=== PATIENT | male | born 1985 | race Caucasian/White ===

== ENCOUNTER → 2016-10-27 | Outpatient (CLI) | payer BC, OTHER ==
--- NOTE | 2016-10-27 19:44 | REP ---
RIGHT ANKLE SERIES, COMPLETE: 10/27/2016. Clinical history: Ankle injury. Pain. Findings. There are no prior studies. Four views show the mortise joints symmetric and preserved with no talar dome osteochondral defect or widening of the mortise distal tibia and fibula without fracture or focal lesion nor avulsion. Subtalar joints intact. No heel spurs. The talonavicular and calcaneocuboid joints are intact. Impression: 1. Negative right ankle series for any acute bony finding. Signed by Yobany Marcano MD 10/27/2016 07:55 P
== END ==
LOC: M WUC 17:32
PROVIDERS: ATTEND Physician Assistant
DX: M25.571 Pain in right ankle and joints of right foot (principal)

== ENCOUNTER → 2017-05-04 | Outpatient (REF) | payer OTHER ==
[2017-05-04 14:27] LABS: MEAN CORPUSCULAR HEMOGLOBIN 31.7 pg (27.0-33.0); MEAN CORPUSCULAR HGB CONC 35.2 g/dl (32.0-36.5); MEAN CORPUSCULAR VOLUME 89.9 fl (80.0-96.0); RED CELL DISTRIBUTION WIDTH 12.3 % (11.5-14.5); WHITE BLOOD COUNT 6.6 K/mm3 (4.0-10.0)
[2017-05-04 14:28] LABS: ALBUMIN 4.5 GM/DL (3.2-5.2); ALKALINE PHOSPHATASE 69 U/L (45-117); ALT/SGPT 19 U/L (12-78); ANION GAP 7 MEQ/L (8-16); AST/SGOT 14 U/L (15-37); BILIRUBIN,TOTAL 0.5 MG/DL (0.2-1.0); BLOOD UREA NITROGEN 8 MG/DL (7-18); CALCIUM LEVEL 9.7 MG/DL (8.5-10.1); CARBON DIOXIDE LEVEL 29 MEQ/L (21-32); CHLORIDE LEVEL 106 MEQ/L (98-107); CREATININE FOR GFR 0.86 MG/DL (0.55-1.02); GLOMERULAR FILTRATION RATE > 60.0 (>60); GLUCOSE, FASTING 99 MG/DL (70-105); SODIUM LEVEL 142 MEQ/L (136-145); TOTAL PROTEIN 7.5 GM/DL (6.4-8.2)
== END ==
LOC: EDSEX → M SFHCADAM 10:40 → MERGE 10:40
PROVIDERS: ATTEND Family Medicine
DX: B35.1 Tinea unguium (principal); B36.0 Pityriasis versicolor

== ENCOUNTER 2018-02-13 02:52 | Emergency (ER) | payer OTHER ==
[2018-02-13] MEDS: LIDOCAINE VISCOUS 2% SOLN 15ML UDC PO (04:04)
== END 2018-02-13 04:45 | disposition home or self-care (01) ==
LOC: M ED 02:52
DX: R19.8 Other specified symptoms and signs involving the digestive system and abdomen (principal); Z72.0 Tobacco use; Z79.899 Other long term (current) drug therapy
CPT/HCPCS: 99283

== ENCOUNTER → 2023-08-10 | Outpatient (REF) | payer BC ==
[~2023-08-10] MED LIST: TERB250T91 PO
[2023-08-11 12:25] LABS: CHLAMYDIA DNA AMPLIFICATION NEGATIVE (NEGATIVE); GC DNA AMPLIFICATION NEGATIVE (NEGATIVE)
== END ==
LOC: M LAB REF 09:56
PROVIDERS: ATTEND Student in an Organized Health Care Education/Training Program
DX: L04.9 Acute lymphadenitis, unspecified (principal)